=== PATIENT | female | born 1975 | race Caucasian/White ===

== ENCOUNTER → 2021-04-28 | Outpatient (CLI) | payer BC ==
[~2021-04-28] MED LIST: GLUCOPHAGE500 MG/TAB PO; IMITREX 6M6 MG/0.5 M SQ; LEVAQUIN 5500 MG/TA1 PO; NORGESIC FORTE1 TA1 PO; TORADOL 10MG TA10 MG PO
== END ==
LOC: DIA.ED 10:16
DX: E11.9 Type 2 diabetes mellitus without complications (principal); Z79.84 Long term (current) use of oral hypoglycemic drugs
CPT/HCPCS: G0108

== ENCOUNTER → 2021-06-23 | Outpatient (CLI) | payer BC | LOC: DIA.ED 05-19 10:02 | DX: E11.9 Type 2 diabetes mellitus without complications (principal); Z79.84 Long term (current) use of oral hypoglycemic drugs | CPT/HCPCS: G0108 ==